=== PATIENT | male | born 1955 | race Hispanic/Latino ===

== ENCOUNTER 2018-08-09 12:55 | Emergency (ER) | payer OTHER ==
[2018-08-09 13:50] LABS: Basophils # (Auto) 0.1 K/mm3 (0.0-0.1); Basophils % (Auto) 0.9 % (0.0-1.8); Eosinophils # (Auto) 0.1 K/mm3 (0.0-0.4); Eosinophils % (Auto) 0.8 % (0.0-4.3); Hematocrit 51.6 % (35.5-45.6); Hemoglobin 17.7 gm/dl (11.8-15.2); Mean Corpuscular HGB Conc 34 % (32-34); Mean Corpuscular Hemoglobin 33 pg (28-32); Mean Corpuscular Volume 96 fl (84-94); Monocytes # (Auto) 0.5 K/mm3 (0.0-0.8); Monocytes % (Auto) 7.3 % (0.0-7.3); Platelet Count 396 K/mm3 (140-440); Red Blood Count 5.39 M/mm3 (3.65-5.03); Red Cell Distribution Width 14.4 % (13.2-15.2)
--- NOTE | 2018-08-09 14:01 | Emergency Department Report ---
HPI - General Chief Complaint: Medical Clearance Time Seen by Provider: 08/09/18 13:38 - HPI HPI: [place] 26 The patient is a 63-year-old male presenting with a chief complaint of alcohol abuse. The patient comes to the emergency Department seeking detox from alcohol. The patient states he drinks "a lot" every day. Patient states his last consumption was last night. The patient states he loses count how much alcohol he consumes. Patient denies homicidal or suicidal ideation Location: [See above] Duration: [See above] Quality: [See above] Severity: [See above] Modifying factors: [see above] Context: [see above] Mode of transportation: [not driving] ED Past Medical Hx - Past Medical History Hx Psychiatric Treatment: Yes (ALCOHOL ABUSE) Hx COPD: Yes - Surgical History Additional Surgical History: BACK SURGERY-87 - Family History Family history: no significant - Social History Smoking Status: Current Every Day Smoker (1 pack per day) Substance Use Type: Alcohol ("a lot" daily) ED Review of Systems ROS: Stated complaint: ALCOHOL ADDICTION Other details as noted in HPI Constitutional: no symptoms reported Eyes: denies: eye pain ENT: denies: throat pain Respiratory: no symptoms reported Cardiovascular: denies: chest pain Endocrine: no symptoms reported Gastrointestinal: denies: abdominal pain Musculoskeletal: denies: back pain Neurological: denies: headache Physical Exam - Physical Exam Vital Signs: Vital Signs 08/09/18 13:03 Temperature 97.5 F L Pulse Rate 88 Respiratory 20 Rate Blood Pressure 113/63 O2 Sat by Pulse 92 Oximetry Physical Exam: GENERAL: The patient is well-developed well-nourished male lying on stretcher not appearing to be in acute distress. [] HEENT: Normocephalic. Atraumatic. Extraocular motions are intact. Patient has moist mucous membranes. NECK: Supple. No meningitic signs are noted. There is no adenopathy noted. CHEST/LUNGS: Clear to auscultation. There is no respiratory distress noted. HEART/CARDIOVASCULAR: Regular. There is no tachycardia. There is no gallop rub or murmur. ABDOMEN: Abdomen is soft, nontender. Patient has normal bowel sounds. There is no abdominal distention. SKIN: There is no rash. There is no edema. There is no diaphoresis. NEURO: The patient is awake, alert, and oriented. The patient is cooperative. The patient has normal speech MUSCULOSKELETAL: There is no evidence of acute injury. ED Course Vital Signs 08/09/18 13:03 Temperature 97.5 F L Pulse Rate 88 Respiratory 20 Rate Blood Pressure 113/63 O2 Sat by Pulse 92 Oximetry ED Medical Decision Making - Lab Data Result diagrams: 08/09/18 13:17 08/09/18 13:17 - Differential Diagnosis alcohol abuse Critical care attestation.: If time is entered above; I have spent that time in minutes in the direct care of this critically ill patient, excluding procedure time. ED Disposition Clinical Impression: Alcohol abuse Disposition: DC-01 TO HOME OR SELFCARE Is pt being admited?: No Does the pt Need Aspirin: No Condition: Stable Instructions: Abuse of Alcohol (ED) Additional Instructions: Please follow up with the resources that were given for alcohol abuse Referrals: PRIMARY CAREMD [Primary Care Provider] - 3-5 Days
[2018-08-09 14:02] LABS: BUN/Creatinine Ratio 8; Blood Urea Nitrogen 4 mg/dL (9-20); Calcium 9.1 mg/dL (8.4-10.2); Hemolysis Index 14
[2018-08-09] MEDS ORDERED: VITAMIN B-1 100 MG, FOLVITE 1 MG, INFUVITE 10 ML, MAGNESIUM SULFATE 2 GM in NACL 0.9% 1... IV ONE (14:59)
[2018-08-09 16:45] LABS: Bacteria,Urine 1+ /HPF (Negative); Bilirubin,Urine NEG (Negative); Blood,Urine NEG (Negative); Color,Urine Straw (Yellow); Protein,Urine <15 mg/dL mg/dL (Negative); Urobilinogen,Urine < 2.0 mg/dL (<2.0); WBC,Urine < 1.0 /HPF (0.0-6.0)
[2018-08-09 16:59] LABS: Amphetamine Screen,Urine PRESUMPTIVE NEGATIVE; Benzodiazepines Screen,Urine PRESUMPTIVE NEGATIVE; Cannabinoid Screen,Urine PRESUMPTIVE NEGATIVE; Cocaine Screen,Urine PRESUMPTIVE NEGATIVE; Methadone Screen,Urine PRESUMPTIVE NEGATIVE; Opiate Screen,Urine PRESUMPTIVE NEGATIVE
[2018-08-09] MEDS ORDERED: ATIVAN IV PRN ×2 (19:34)
[2018-08-09] MEDS: ATIVAN IV PRN (20:49)
[2018-08-09] MEDS ORDERED: NACL 0.9% 1000 ML 1,000 ML IV ONE (21:00)
[2018-08-09] MEDS ORDERED: NACL 0.9% 1000 ML 1,000 ML ONE (22:13)
[2018-08-10] MEDS: ATIVAN IV PRN ×2 (05:37→12:24)
--- NOTE | 2018-08-10 12:44 | Consultation ---
History of Present Illness - Reason for Consult Consult date: 08/10/18 Reason for consult: Mental Health Evaluation Requesting physician: FRANK CONNOLLY - Chief Complaint Chief complaint: "I just like to drink" - History of Present Psychiatric Illness 63-year-old male presenting with a chief complaint of alcohol abuse. The patient comes to the emergency Department seeking detox from alcohol. Today the patient is calm and cooperative during the assessment. He stated having a long hx of alcohol abuse (30 plus years). He stated that he drink (etoh) because he likes it. He denies having any other mental health dx. He denies being depressed when asked. He stated that he want to stop drinking because it's not healthy. He denies SI/HI's and AVH's. He denies erratic sleep and a poor appetite. He denies recreational drug use. Medications and Allergies Allergies Allergy/AdvReac Type Severity Reaction Status Date / Time No Known Allergies Allergy Unverified 08/09/18 13:15 Active Meds: Active Medications Lorazepam (Ativan) 4 mg IV Q1HR PRN PRN Reason: CIWA-Ar 16-25 Last Admin: 08/09/18 20:57 Dose: 4 mg Lorazepam (Ativan) 4 mg IV Q15MIN PRN PRN Reason: CIWA-Ar >25 Past psychiatric history - Past Medical History Past Medical History: COPD Past Surgical History: No surgical history - past Psychiatric treatment and history psychiatric treatment history: Hx of alcohol abuse. Denies a fam hx psy hx. - Social History Social history: other (Homeless) Mental Status Exam - Vital signs Last Vital Signs Temp 97.5 F L 08/09/18 13:03 Pulse 101 H 08/10/18 11:00 Resp 25 H 08/10/18 11:00 BP 106/58 08/10/18 11:00 Pulse Ox 93 08/10/18 11:00 - Exam Narrative exam: MSE: Appearance: calm, malodorous Behavior: regular eye contact Speech: regular rate and tone Mood: "okay" Affect: congruent to mood Thought Process: circumstantial Thought Content: denies SI/HI's and AVH's Motor Activity: lying down in the bed Cognition: A/O x3 Insight: fair Judgment: fair Results Result Diagrams: 08/09/18 13:17 08/09/18 13:17 Abnormal lab results 08/09/18 08/09/18 08/09/18 Range/Units 13:17 13:17 13:17 RBC (3.65-5.03) M/mm3 Hgb (11.8-15.2) gm/dl Hct (35.5-45.6) % MCV (84-94) fl MCH (28-32) pg Lymph % (Auto) (13.4-35.0) % Sodium 133 L (137-145) mmol/L Chloride 92.8 L (98-107) mmol/L Carbon Dioxide 21 L (22-30) mmol/L BUN 4 L (9-20) mg/dL Creatinine 0.5 L (0.8-1.5) mg/dL Glucose 117 H (75-100) mg/dL Salicylates < 0.3 L (2.8-20.0) mg/dL Acetaminophen < 5.0 L (10.0-30.0) ug/mL Plasma/Serum Alcohol (0-0.07) % 08/09/18 08/09/18 Range/Units 13:17 13:17 RBC 5.39 H (3.65-5.03) M/mm3 Hgb 17.7 H (11.8-15.2) gm/dl Hct 51.6 H (35.5-45.6) % MCV 96 H (84-94) fl MCH 33 H (28-32) pg Lymph % (Auto) 43.0 H (13.4-35.0) % Sodium (137-145) mmol/L Chloride (98-107) mmol/L Carbon Dioxide (22-30) mmol/L BUN (9-20) mg/dL Creatinine (0.8-1.5) mg/dL Glucose (75-100) mg/dL Salicylates (2.8-20.0) mg/dL Acetaminophen (10.0-30.0) ug/mL Plasma/Serum Alcohol 0.28 H (0-0.07) % All other labs normal. Assessment and Plan Assessment and plan: Impression: Alcohol Use DO. Today the patient is calm and cooperative during the assessment. Mild to moderate tremors noted (etoh). DDx: R/O Mood DO Recommendation/Plan: Continue CIWA. Monitor patients with alcohol withdrawals. Case Mgmt involvement, the patient may need assistance with placement. Dispo: The patient can follow up with [facility] for outpatient rehab services when discharged. Will staff with Dr Serrano.
--- NOTE | 2018-08-10 16:50 | Emergency Department Report ---
Blank Doc - Documentation Documentation: Patient is a 63-year-old male who was seen here for alcohol abuse. Patient was placed on a 2013 which is been rescinded by our mental health specialist. Patient does have a history of heavy drinking but states he doesn' t feel as though he is a danger to himself. Patient is not homicidal suicidal at this time. Patient has a facility that he is going to follow-up with and is stable for discharge. Patient currently has no hallucinations or tremors at this time. Patient stable for discharge.
[2018-08-10 19:23] VITALS: BP 101/58
== END 2018-08-10 20:16 | disposition home or self-care (01) ==
LOC: EEVIPCON 12:55 → ED 12:55
DX: F10.239 Alcohol dependence with withdrawal, unspecified (principal); J44.9 Chronic obstructive pulmonary disease, unspecified; F17.200 Nicotine dependence, unspecified, uncomplicated; Z79.899 Other long term (current) drug therapy
CPT/HCPCS: 36415; 80048; 80307; 81001; 85025; 96365; 96366; 96375; 96376; 99284; G0480; J2060; J3411; J3475; J7030; 80320